=== PATIENT | male | born 1950 ===

== ENCOUNTER → 2017-12-06 | Outpatient (CLI) | payer MEDICARE | LOC: LAB SHORT 14:08 → PLD 14:08 | DX: D11.0 Benign neoplasm of parotid gland (principal) | CPT/HCPCS: 88173 ==

== ENCOUNTER 2018-12-23 06:36 | Day surgery (SDC) | payer MEDICARE ==
[~2018-12-23] VITALS: Ht 177.8 cm; Wt 71.0 kg
[~2018-12-23 06:36] MED LIST: ALBU3IS INH; ALBU90OI61 INH; FLUT1DIS5 INH
== END 2018-12-23 09:32 | disposition home or self-care (01) ==
LOC: ORSCSDS 06:36
PROVIDERS: Internal Medicine Gastroenterology
PROC: 0DBP8ZX Excision of Rectum, Via Natural or Artificial Opening Endoscopic, Diagnostic (ICD-10-PCS; principal; 2018-12-23 08:00)
PROC: 0DBM8ZX Excision of Descending Colon, Via Natural or Artificial Opening Endoscopic, Diagnostic (ICD-10-PCS; principal; 2018-12-23 08:00)
PROC: 0DBN8ZX Excision of Sigmoid Colon, Via Natural or Artificial Opening Endoscopic, Diagnostic (ICD-10-PCS; principal; 2018-12-23 08:00)
PROC: 0DBL8ZX Excision of Transverse Colon, Via Natural or Artificial Opening Endoscopic, Diagnostic (ICD-10-PCS; principal; 2018-12-23 08:00)
DX: Z12.11 Encounter for screening for malignant neoplasm of colon (principal); D12.3 Benign neoplasm of transverse colon; D12.4 Benign neoplasm of descending colon; D12.5 Benign neoplasm of sigmoid colon; D12.8 Benign neoplasm of rectum; K57.30 Diverticulosis of large intestine without perforation or abscess without bleeding; Z86.010 Personal history of colon polyps; Z86.718 Personal history of other venous thrombosis and embolism; J44.9 Chronic obstructive pulmonary disease, unspecified; Z85.47 Personal history of malignant neoplasm of testis; F17.210 Nicotine dependence, cigarettes, uncomplicated; Z79.899 Other long term (current) drug therapy
CPT/HCPCS: 88305; J0461; J1980; J2405; J2704; J7120

== ENCOUNTER → 2021-07-18 | Outpatient (CLI) | payer MEDICARE | END | disposition home or self-care (01) | LOC: LAB SHORT 11:00 → LAB 11:00 | DX: R10.9 Unspecified abdominal pain (principal) | CPT/HCPCS: 87086 ==

== ENCOUNTER 2021-12-29 06:58 | Day surgery (SDC) | payer MEDICARE ==
[~2021-12-29] VITALS: Ht 177.8 cm; Wt 129.2 kg
[2021-12-29] MEDS ORDERED: PRED20 (08:18)
[2021-12-29] MEDS ORDERED: Norco 10-325 T1 EACH (08:18)
[2021-12-29] MEDS ORDERED: MORPHINE SULFAT20 MG (08:19)
== END 2021-12-29 10:35 | disposition home or self-care (01) ==
LOC: ORSCSDS 06:58
PROVIDERS: Surgery
PROC: 05HM33Z Insertion of Infusion Device into Right Internal Jugular Vein, Percutaneous Approach (ICD-10-PCS; principal; 2021-12-29 08:30)
PROC: B543ZZA Ultrasonography of Right Jugular Veins, Guidance (ICD-10-PCS; principal; 2021-12-29 08:30)
DX: C68.8 Malignant neoplasm of overlapping sites of urinary organs (principal); J44.9 Chronic obstructive pulmonary disease, unspecified; F17.210 Nicotine dependence, cigarettes, uncomplicated; Z79.899 Other long term (current) drug therapy
CPT/HCPCS: 77001; C1788; J0690; J1100; J1642; J2250; J2405; J2704; J3010